=== PATIENT | male | born 1935 | race Caucasian/White ===

== ENCOUNTER 2017-01-23 20:09 | Inpatient (IN) | payer OTHER ==
[~2017-01-23] VITALS: Ht 182.9 cm; Wt 73.7 kg
--- NOTE | ~2017-01-23 | 2DMMODE ---
[facility] [address] [place] [address] 2 D/M-MODE ECHOCARDIOGRAM Name: JOVITAURBAN Room #: 309-P ADM IN M.R.#: [id number] Admission: 01/23/17 Attend Phys: Raul Blackman, Discharge: Date of : 37 Date of Service: 01/24/17 1510 Report #: [id number] THIS REPORT FOR: //name// APPROVED REPORT Study performed: 01/24/2017 14:27:19 EXAM: Comprehensive 2D, Doppler, and color-flow Echocardiogram Patient Location: Bedside Room #: 309 Blood Pressure: 185/119 mmHg HR: 78 bpm Other Information Study Quality: Fair Indications Hypertension/HDD Aortic Valve AoV Peak Collin.: 1.62 m/s AO Peak Gr.: 10.44 mmHg LV Max P.60 mmHg LV Max: 1.38 m/s Mitral Valve E/A Ratio: 0.5 MV Decel. Time: 293.48 ms MV E Max Collin.: 0.52 m/s MV A Collin.: 1.15 m/s MV PHT: 85.11 ms Pulmonary Vein P Vein S: 38.5 m/s P Vein D: 21.0 m/s P Vein A Dur.: 35.9 m/s PVa Duration: 101 Left Ventricle The left ventricle is normal size. Appears to have concentric left ventricular hypertrophy. Left ventricular systolic function is hyperdynamic. LVEF is >70%. Grade I - abnormal relaxation pattern. [facility] [address] [email or web address] [address] 2 D/M-MODE ECHOCARDIOGRAM Name: JOVITA,[facility] Room #: 309-P ADM IN M.R.#: [id number] Admission: 01/23/17 Attend Phys: Raul Blackman, Discharge: Date of : 37 Date of Service: 01/24/17 1510 Report #: [id number] Right Ventricle The right ventricle is normal size. The right ventricular systolic function is normal. Atria The left atrium size is normal. The right atrium size is normal. Aortic Valve The aortic valve is not well visualized. Aortic valve is calcified. No aortic regurgitation is present. There is no aortic valvular stenosis. Mitral Valve The mitral valve is normal in structure. There is no mitral valve regurgitation noted. No evidence of mitral valve stenosis. Tricuspid Valve The tricuspid valve is normal in structure. There is no tricuspid valve regurgitation noted. Pulmonic Valve Pulmonic valve is not well visualized. Great Vessels The aortic root is not well visualized but is probably normal size. IVC is not well visualized. Pericardium There is no pericardial effusion. <Conclusion> The left ventricle is normal size. LVEF is >70%. The aortic valve is not well visualized. Aortic valve is calcified. The mitral valve is normal in structure. The tricuspid valve is normal in structure. <ELECTRONICALLY SIGNED> By: Oumar Bagley MD 01/24/17 1510 09 09 Oumar Bagley MD /INF
--- NOTE | ~2017-01-23 | EEG ---
[facility] [place] [address] [facility]ENCEPHALOGRAM [facility] #: [facility]-P ADM IN M.R.#: [id number] Admission: 01/23/17 Attend Phys: Raul Blackman DO Discharge: Date of : 37 Report #: [id number] THIS REPORT FOR: //name// CC: Raul Mitchell DATE OF SERVICE: 01/24/2017 This patient is being evaluated for altered mental status. EEG was done to further evaluate that. This patient's EEG was done by placing the electrodes by standard 10-20 system of electrode placement. Both referential and sequential montages were used for recording. Background activity in this patient's EEG is about 9 Hz and 30-40 microvolt. It is somewhat suppressed on the left side. The patient went to sleep that is associated with bilateral slowing, vertex sharp waves and sleep spindle. Throughout the record, no active epileptiform activity was noticed. IMPRESSION: No active epileptiform activity was noticed during this EEG. There is slight asymmetry of amplitude, with amplitude being somewhat higher on the right side as compared to the left side. That can happen normally, but the possibility of any right-sided lesion should be excluded. No active epileptiform activity was noticed during this record. Thank you very much for this referral. <ELECTRONICALLY SIGNED> By: Juan Pablo Griffin MD 01/25/17 1942 1846 46 MD cris Edmond
--- NOTE | ~2017-01-23 | EKG ---
[address] [place] [place] [address] ELECTROCARDIOGRAM [facility] Room #: 309-P ADM IN M.R.#: [id number] Admission: 01/23/17 Attend Phys: Raul Blackman DO Discharge: Date of : 37 Report #: [id number] THIS REPORT FOR: //name// [facility] ED Test Date: 2017-01-23 Test Time: 20:26:50 Pat Name: EVELYN HUSSEIN Department: Room: [facility] Gender: M Supply Service Worker: JONATHAN : 1935 Requested By: Katy Aguilar Order Number: [id number] MD: Geoffrey Tavarez Measurements Intervals [place] Rate: 69 P: 58 VT: 200 QRS: 38 QRSD: 89 T: 87 QT: 396 QTc: 425 Interpretive Statements Sinus rhythm Baseline wander in lead(s) V1 No previous ECG available for comparison Electronically Signed On 01-24-2017 8:22:56 CDT by Geoffrey Tavarez [email or web address] <ELECTRONICALLY SIGNED> By: Geoffrey Tavarez MD, [facility] 01/24/17821 25 25 Geoffrey Tavarez MD, FACC /EPI
[2017-01-23 20:10] VITALS: BP 214/94
[2017-01-23 20:27] LABS: ABSOLUTE NEUTROPHILS 8.3 thou/uL (1.4-8.2); BASOPHILS 0.6 % (0.0-2.0); EOSINOPHILS 1.8 % (0.0-3.0); HEMOGLOBIN 15.9 gm/dL (14.0-18.0); LYMPHOCYTES 9.9 % (24.0-44.0); MCH 32.3 pg (26.0-34.0); MCHC 33.9 g/dL (28.0-37.0); MCV 95.3 fL (80.0-100.0); MONOCYTES 7.2 % (1.0-8.0); PLATELET COUNT 272 thou/uL (150-400); POLYS 80.5 % (36.0-66.0); RBC 4.93 mil/uL (4.50-6.00); RDW 13.5 % (10.5-14.5); WBC 10.3 thou/uL (4.0-11.0)
[2017-01-23 20:35] LABS: MANUAL DIFF NO
[2017-01-23 20:40] LABS: CALCIUM 8.9 mg/dL (8.5-10.1); CREATININE 0.9 mg/dL (0.7-1.3); POTASSIUM 3.5 mmol/L (3.5-5.1)
[2017-01-23] MEDS ORDERED: COREG CR10 MG (21:20)
[2017-01-23] MEDS ORDERED: METFORMIN HCL500 MG PO (21:21)
[2017-01-23] MEDS ORDERED: LISINOPRIL10 MG PO (21:21)
[2017-01-23] MEDS ORDERED: HYDRALAZINE 10M10 MG (21:21)
[2017-01-23] MEDS ORDERED: REQUIP 0.25 M0.25 M1 (21:21)
[2017-01-23 22:38] LABS: URINE BILIRUBIN NEGATIVE (Negative); URINE BLOOD NEGATIVE (Negative); URINE COLOR YELLOW; URINE GLUCOSE-RANDOM* NEGATIVE (Negative); URINE KETONES NEGATIVE (Negative); URINE NITRITE NEGATIVE (Negative); URINE PROTEIN (DIPSTICK) NEGATIVE (Negative); URINE SPECIFIC GRAVITY 1.015 (1.003-1.035)
[2017-01-23 23:02] VITALS: BP 187/93
[2017-01-24 04:22] VITALS: BP 159/84
[2017-01-24 06:38] LABS: FOLIC ACID 18.4 ng/mL (8.6-58.9); TSH 2.438 uIU/mL (0.358-3.740)
[2017-01-24 08:40] VITALS: BP 185/119
[2017-01-24 09:27] LABS: CHOLESTEROL 137 mg/dL (<200); HDL CHOLESTEROL 34 mg/dL (>40); LDL CHOLESTEROL 86 mg/dL (<100); TRIGLYCERIDE 85 mg/dL (<150); VLDL 17 mg/dL (<40)
[2017-01-24 14:00] VITALS: BP 148/74
[2017-01-24 17:00] VITALS: BP 144/76
[2017-01-24 20:15] VITALS: BP 144/63
[2017-01-25 03:14] LABS: HIV ANTIBODY Non Reactive (Non Reactive)
[2017-01-25 04:30] VITALS: BP 177/102
[2017-01-25 05:19] LABS: ABSOLUTE NEUTROPHILS 5.5 thou/uL (1.4-8.2); BASOPHILS 0.9 % (0.0-2.0); EOSINOPHILS 1.9 % (0.0-3.0); HEMATOCRIT 49.2 % (42.0-52.0); HEMOGLOBIN 16.8 gm/dL (14.0-18.0); LYMPHOCYTES 13.9 % (24.0-44.0); MCH 32.2 pg (26.0-34.0); MCV 94.7 fL (80.0-100.0); MONOCYTES 9.9 % (1.0-8.0); PLATELET COUNT 266 thou/uL (150-400); POLYS 73.4 % (36.0-66.0); RDW 13.5 % (10.5-14.5); WBC 7.5 thou/uL (4.0-11.0)
[2017-01-25 05:29] LABS: MANUAL DIFF NO
[2017-01-25 05:31] LABS: CALCIUM 8.4 mg/dL (8.5-10.1); CREATININE 0.8 mg/dL (0.7-1.3); POTASSIUM 3.8 mmol/L (3.5-5.1)
[2017-01-25 08:13] VITALS: BP 169/83
[2017-01-25 12:00] VITALS: BP 135/78
[2017-01-25 17:00] VITALS: BP 169/83
[2017-01-25 20:00] VITALS: BP 186/91
[2017-01-25 23:10] LABS: GLYCOHEMOGLOBIN (HGB A1C) 5.5 % (4.8-5.6)
[2017-01-26 04:00] VITALS: BP 157/73
[2017-01-26 04:28] LABS: CALCIUM 8.3 mg/dL (8.5-10.1); CREATININE 0.8 mg/dL (0.7-1.3); POTASSIUM 3.4 mmol/L (3.5-5.1)
[2017-01-26 08:00] VITALS: BP 180/92
[2017-01-26 12:00] VITALS: BP 134/80
[2017-01-26 16:00] VITALS: BP 182/88
[2017-01-26 19:26] VITALS: BP 187/74
[2017-01-27 04:25] VITALS: BP 171/93
[2017-01-27 06:13] LABS: CALCIUM 8.3 mg/dL (8.5-10.1); CREATININE 0.9 mg/dL (0.7-1.3); POTASSIUM 3.3 mmol/L (3.5-5.1)
[2017-01-27 11:54] VITALS: BP 151/77
[2017-01-27] MEDS ORDERED: LISINOPRIL10 MG PO (12:01)
[2017-01-27] MEDS ORDERED: B-121000 MC2 PO (12:01)
[2017-01-27] MEDS ORDERED: ADULT LOW DOSE81 MG PO (12:01)
[2017-01-27] MEDS ORDERED: NORVASC10 MG PO (12:01)
[2017-01-27 16:46] VITALS: BP 161/73
[2017-01-27 21:55] VITALS: BP 163/80
[2017-01-28 04:00] VITALS: BP 161/84
[2017-01-28 08:15] VITALS: BP 159/90
[2017-01-28 12:16] VITALS: BP 182/81
[2017-01-28 15:23] VITALS: BP 183/75
[2017-01-28 20:00] VITALS: BP 146/73
[2017-01-29 04:25] VITALS: BP 131/69
[2017-01-29 07:14] VITALS: BP 162/87
[2017-01-29 11:39] VITALS: BP 120/60
[2017-01-29 15:52] VITALS: BP 140/87
[2017-01-29 20:20] VITALS: BP 153/74
[2017-01-30 03:55] VITALS: BP 132/88
[2017-01-30 10:04] VITALS: BP 171/84
[2017-01-30] MEDS ORDERED: HYDROCHLOROTHIA25 M2 PO (11:43)
[2017-01-30] MEDS ORDERED: HYDRALAZINE 10M10 MG PO (11:43)
== END 2017-01-30 14:00 | DRG 304 ==
LOC: ER 20:09 → 3N 21:27 → EROBS 21:27 → 3N 22:42
PROVIDERS: Emergency Medicine; Family Medicine; Internal Medicine Endocrinology, Diabetes & Metabolism; Nurse Practitioner; Psychiatry & Neurology Neurology
DX: I16.1 Hypertensive emergency (principal); G93.41 Metabolic encephalopathy; I69.351 Hemiplegia and hemiparesis following cerebral infarction affecting right dominant side; I10 Essential (primary) hypertension; R41.0 Disorientation, unspecified; E78.5 Hyperlipidemia, unspecified; E87.6 Hypokalemia; R53.81 Other malaise; M17.12 Unilateral primary osteoarthritis, left knee; E11.65 Type 2 diabetes mellitus with hyperglycemia; Z82.3 Family history of stroke
CPT/HCPCS: 10096

== ENCOUNTER 2017-02-19 09:10 | Emergency (ER) | payer OTHER ==
[~2017-02-19] VITALS: Ht 182.9 cm; Wt 77.1 kg
[~2017-02-19 09:10] MED LIST: ADULT LOW DOSE81 MG PO; B-121000 MC2 PO; COREG CR10 MG; HYDRALAZINE 10M10 MG; HYDRALAZINE 10M10 MG PO; HYDROCHLOROTHIA25 M2 PO; LISINOPRIL10 MG PO; METFORMIN HCL500 MG PO; NORVASC10 MG PO; REQUIP 0.25 M0.25 M1
[2017-02-19 09:32] LABS: ABSOLUTE NEUTROPHILS 6.3 thou/uL (1.4-8.2); BASOPHILS 0.9 % (0.0-2.0); EOSINOPHILS 6.1 % (0.0-3.0); HEMATOCRIT 42.5 % (42.0-52.0); HEMOGLOBIN 14.8 gm/dL (14.0-18.0); LYMPHOCYTES 11.6 % (24.0-44.0); MANUAL DIFF NO; MCH 33.3 pg (26.0-34.0); MCHC 34.8 g/dL (28.0-37.0); MCV 95.5 fL (80.0-100.0); MONOCYTES 8.9 % (1.0-8.0); PLATELET COUNT 356 thou/uL (150-400); POLYS 72.5 % (36.0-66.0); RBC 4.45 mil/uL (4.50-6.00); WBC 8.6 thou/uL (4.0-11.0)
[2017-02-19 09:39] LABS: URINE BILIRUBIN NEGATIVE (Negative); URINE BLOOD 1+ (Negative); URINE COLOR YELLOW; URINE GLUCOSE-RANDOM* NEGATIVE (Negative); URINE KETONES NEGATIVE (Negative); URINE NITRITE NEGATIVE (Negative); URINE PROTEIN (DIPSTICK) 1+ (Negative)
[2017-02-19 09:39] LABS: CALCIUM 8.7 mg/dL (8.5-10.1); CREATININE 0.9 mg/dL (0.7-1.3); POTASSIUM 3.9 mmol/L (3.5-5.1)
[2017-02-19 09:49] LABS: SQUAMOUS None Seen /LPF (0-3)
[2017-02-19 09:50] LABS: CASTS None Seen /LPF (None Seen); CRYSTALS None Seen /LPF (None Seen); URINE RBC 0-2 Rare /HPF (0-2)
[2017-02-19 09:51] LABS: BACTERIA >30 Many /HPF (None Seen)
[2017-02-19] MEDS ORDERED: KEFLEX500 MG PO (10:03)
== END 2017-02-19 11:57 | disposition home or self-care (01) ==
LOC: ER 09:10
PROVIDERS: Emergency Medicine
DX: R33.9 Retention of urine, unspecified (principal); Z86.73 Personal history of transient ischemic attack (TIA), and cerebral infarction without residual deficits; I10 Essential (primary) hypertension; E11.9 Type 2 diabetes mellitus without complications

== ENCOUNTER 2017-03-03 09:19 | Emergency (ER) | payer OTHER ==
[~2017-03-03] VITALS: Ht 185.4 cm; Wt 88.5 kg
[~2017-03-03 09:19] MED LIST changes: +KEFLEX500 MG PO
[2017-03-03 10:41] LABS: URINE BLOOD 3+ (Negative); URINE GLUCOSE-RANDOM* NEGATIVE (Negative); URINE KETONES 1+ (Negative); URINE NITRITE NEGATIVE (Negative); URINE PROTEIN (DIPSTICK) 1+ (Negative); URINE SPECIFIC GRAVITY 1.025 (1.003-1.035)
[2017-03-03 10:44] LABS: ICTOTEST (BILI CONFIRMATORY) Negative (Negative); URINE BILIRUBIN NEGATIVE (Negative); URINE COLOR DK YELLOW
[2017-03-03 11:00] LABS: CASTS None Seen /LPF (None Seen); CRYSTALS None Seen /LPF (None Seen); SQUAMOUS None Seen /LPF (0-3); URINE RBC >20 Many /HPF (0-2); URINE WBC 6-15 Few /HPF (0-5)
== END 2017-03-03 11:13 | disposition home or self-care (01) ==
LOC: ER 09:19
PROVIDERS: Physician Assistant
DX: T83.84XA Pain due to genitourinary prosthetic devices, implants and grafts, initial encounter (principal); I10 Essential (primary) hypertension; E11.9 Type 2 diabetes mellitus without complications; Z86.73 Personal history of transient ischemic attack (TIA), and cerebral infarction without residual deficits

== ENCOUNTER 2017-03-10 03:16 | Emergency (ER) | payer OTHER ==
[~2017-03-10] VITALS: Ht 185.4 cm; Wt 88.5 kg
[2017-03-10 07:32] LABS: URINE BILIRUBIN NEGATIVE (Negative); URINE BLOOD 3+ (Negative); URINE GLUCOSE-RANDOM* NEGATIVE (Negative); URINE KETONES NEGATIVE (Negative); URINE NITRITE NEGATIVE (Negative); URINE PROTEIN (DIPSTICK) 1+ (Negative); URINE UROBILINOGEN 0.2 E.U./dl (0.2-1.0)
[2017-03-10 07:34] LABS: URINE COLOR PINK
[2017-03-10 08:10] LABS: CASTS None Seen /LPF (None Seen); CRYSTALS None Seen /LPF (None Seen); SQUAMOUS 0-3 Few /LPF (0-3); URINE RBC >20 Many /HPF (0-2); URINE WBC 6-15 Few /HPF (0-5)
[2017-03-10] MEDS ORDERED: KEFLEX500 MG PO (08:18)
== END 2017-03-10 09:46 | disposition home or self-care (01) ==
LOC: ER 03:16
PROVIDERS: Emergency Medicine
DX: N39.0 Urinary tract infection, site not specified (principal); I10 Essential (primary) hypertension; E11.9 Type 2 diabetes mellitus without complications; Z86.73 Personal history of transient ischemic attack (TIA), and cerebral infarction without residual deficits

== ENCOUNTER 2017-03-15 01:59 | Emergency (ER) | payer OTHER ==
[~2017-03-15] VITALS: Ht 180.3 cm; Wt 74.8 kg
[2017-03-15] MEDS ORDERED: LEVAQUIN 250 M250 MG PO (03:24)
[2017-03-15] MEDS ORDERED: PYRIDIUM200 MG PO (03:24)
== END 2017-03-15 04:28 | disposition home or self-care (01) ==
LOC: ER 01:59
DX: N39.0 Urinary tract infection, site not specified (principal); I10 Essential (primary) hypertension; E11.9 Type 2 diabetes mellitus without complications; Z86.73 Personal history of transient ischemic attack (TIA), and cerebral infarction without residual deficits

== ENCOUNTER 2017-03-24 21:56 | Inpatient (IN) | payer OTHER ==
[~2017-03-24] VITALS: Ht 182.9 cm; Wt 71.2 kg
--- NOTE | ~2017-03-24 | HC ---
[facility] [place] [address] [facility] Room #: 458- ADM IN M.R.#: [id number] Admission: 03/25/17 Attend Phys: Yung Macdonald MD Discharge: Date of : 37 Report #: [id number] THIS REPORT FOR: //name// CC: Lizet Macdonald HISTORY OF PRESENT ILLNESS: The patient is an 81-year-old, who has a prior CVA with premorbid significant right hemiparesis, who was admitted with penile pain. The patient was diagnosed with right-sided orchitis as well as bilateral epididymitis with recommendations for nonsteroidals and doxycycline. He has also had a history of frequent falls, has left chronic knee pain complicating his right-sided weakness and transfers. While he was hospitalized, he had the new onset of inability to speak on 03/25, with aphasia. CT of the head was negative, but MRI showed an acute subinsular infarct on 03/26. He was allowed permissive hypertension. Speech therapy is involved, and a swallow evaluation is to be undertaken. He currently is noted to have moderate to severe dysphagia with recommendations for him to be n.p.o. We are seeing him in rehabilitation medicine consultation. PAST MEDICAL HISTORY: Includes the prior CVA with dense right-sided weakness 2-1/2 years ago. He has had several TIAs. His past history includes hypertension, diabetes mellitus, left knee degenerative arthritis, and frequent falls. MEDICATIONS: Please see the full medication listing. FAMILY HISTORY: Noncontributory. ALLERGIES: No known drug allergies. SOCIAL HISTORY: He has been living in an apartment alone. No steps, was able to transfer back and forth to his power wheelchair independently. He had a caregiver/aide 14 hours per week. He was mostly nonambulatory, getting around in his power wheelchair. REVIEW OF SYSTEMS: He would nod for me and did not note any chest pain, shortness of breath, or abdominal discomfort. He indicated no swallowing problems, however, so I could not fully trust his yes and no nodding. He does have the left knee pain. This is an old chronic issue. PHYSICAL EXAMINATION: GENERAL: He is an 81-year-old white male, in no obvious distress. VITAL SIGNS: Temperature is 98, pulse ____, respirations 18, and blood pressure 184/94. NEUROLOGIC: Facies are symmetric. He tends to hold his mouth open in an O shape. He could try to make a smile for me, but appears to have significant oral motor facial weakness. He did not attempt to form any words for me. He [address] [address] [facility]: [facility] #: [facility] IN M.R.#: [id number] Admission: 03/25/17 Attend Phys: Yung Macdonald MD Discharge: Date of : 37 Report #: [id number] has functional range of motion of the left upper extremity. Right upper extremity reveals a right wrist flexion contracture with fisting of the right hand, which could be gently loosened. He is able to raise the right arm grade 3 to 3-. There is no edema. He has painted finger nails. Lower extremities, no focal calf swelling. He does have some right-sided weakness. I would grade him more of a grade 3+ proximally and 3- distally with some apparent right foot drop and weakness in dorsiflexion and eversion. Left lower extremity is more of a grade 4. He appears to have some chronic degenerative changes of both knees. He has been contact guard with bed to chair transfers, had mild posterior loss of balance. Toilet transfers are min assist. He did attempt 2-4 steps with a gait belt stimulating toilet transfer, needing min assist. Speech therapy has noted moderate cognitive deficits. ASSESSMENT: An 81-year-old white male with the following problem list: 1. Acute subinsular infarct, 03/26. 2. Acute severe aphasia and dysphagia. To undergo swallowing study. Currently n.p.o. 3. Moderate cognitive deficits noted per speech therapy. 4. Premorbid cerebrovascular accident with residual right-sided significant hemiparesis from an old stroke 2-1/2 years ago. 5. Right-sided orchitis with bilateral epididymitis. 6. Knee degenerative arthritis. 7. Premorbidly power wheelchair bound, but was able to transfer. PLAN: We will need to see how he does with the swallowing evaluation, whether he warrants PEG tube placement or not. He was living very marginally before. His tolerance for therapies is limited because of the knee degenerative arthritis and working on transfers. I would anticipate that a skilled facility stay would appear to be the most reasonable plan for this patient as I do not think he would tolerate a full acute inpatient rehab stay very well and I questioned whether eventually returning back to his home setting is a realistic plan. Thank you for asking us to assist in this patient's care. <ELECTRONICALLY SIGNED> By: Vinicius Huynh MD 04/01/17 1825 1114 1344 Vinicius Huynh MD /nt
--- NOTE | ~2017-03-24 | HC ---
[facility] [place] [address] [facility]: [facility] ADM IN M.R.#: [id number] Admission: 03/25/17 Attend Phys: Yung Macdonald MD Discharge: Date of : 37 Report #: [id number] THIS REPORT FOR: //name// CC: Lizet Macdonald DATE OF SERVICE: 03/29/2017 GASTROENTEROLOGY CONSULTATION REASON FOR CONSULTATION: Possible PEG tube placement. BACKGROUND: The patient is an 81-year-old white male, admitted on 03/25/2017 with primary complaints of penile pain and epididymitis. Issues of this nature have been addressed per hospitalist and urologist. He had reported falling frequently due to left chronic knee pain and right-sided weakness from prior CVA. He is not well ambulatory. History cannot be well obtained from the patient at this time with aphasia and difficulty in response. He did undergo further evaluation during his hospitalization and CT of the head revealed no definite acute stroke; however, the CT was noncontrast. Atrophic changes were present. MRI of the head on 03/26/2017 did reveal a focal 23 x 6-mm right cerebral hemispheric area of patchy increased diffusion consistent with an acute infarct, but no other diffusion abnormality. No obvious hemorrhage or shift was present. The patient was felt to be at high risk for aspiration and a Dobhoff tube has been placed. PAST MEDICAL HISTORY: He does have a history of hypertension, diabetes, and previous right CVA. Further history cannot be well obtained from the patient. CURRENT MEDICATIONS: Insulin per sliding scale, aspirin 300 mg per day, labetalol p.r.n., hydralazine p.r.n., Requip 0.25 mg at bedtime, metformin 500 mg p.o. b.i.d., lisinopril 40 mg per day, vitamin B12 500 mcg per day, amlodipine 10 mg per day, Levaquin 750 mg q.24 hours, ibuprofen p.r.n., acetaminophen p.r.n., and hydralazine 10 mg t.i.d. ALLERGIES: No known drug allergies. SOCIAL HISTORY: Unable to be obtained from the patient at this time. FAMILY HISTORY: Unable to be obtained from the patient at this time. REVIEW OF SYSTEMS: Unable to be obtained from the patient at this time. PHYSICAL EXAMINATION: GENERAL: The patient appears arousable, but is unable to communicate vocally, [facility] [address] [facility] [place] [address] CON[facility]ATION [facility]: [facility] Room #: 458-P [facility].#: [id number] Admission: 03/25/17 Attend Phys: Yung Macdonald MD Discharge: Date of : 37 Report #: [id number] although he does raise his left hand in response to questions. VITAL SIGNS: Afebrile, blood pressure 176/102, and pulse 79. NEUROLOGIC: He does have right-sided weakness with inability to move his right arm. NECK: Supple without lymphadenopathy. HEART: Heart rate and rhythm regular. LUNGS: Clear to auscultation. ABDOMEN: Soft, nondistended with no obvious hepatosplenomegaly or palpable mass. He exhibits no focal tenderness to palpation. No scars are present in the upper abdomen. EXTREMITIES: He has no significant peripheral edema. LABORATORY STUDIES: On admission, white blood cell count 14.6, hemoglobin 12.7, and platelet count 346,000. More recent CBC on 03/28/2017 reveals decrease in white blood cell count to 9100, hemoglobin stable at 13.4. On 03/28/2017, potassium 3.3, BUN 8, and creatinine 0.6. IMPRESSION: 1. Acute cerebrovascular accident with increased problems with swallowing and high risk of aspiration. 2. Hypertension. 3. Diabetes mellitus. 4. Right-sided epididymitis, followed by urology. RECOMMENDATIONS: 1. Continue tube feedings per Dobhoff. 2. EGD with PEG tube placement may be considered early next week. <ELECTRONICALLY SIGNED> By: Wilver Whaley MD 03/30/17 0745 1259 [id number] Wilver Whaley MD /nt
--- NOTE | ~2017-03-24 | EKG ---
[address] [address] ELECTROCARDIOGRAM [facility] Room #: 458-P ADM IN M.R.#: [id number] Admission: 03/25/17 Attend Phys: Yung Macdonald MD Discharge: Date of : 37 Report #: [id number] THIS REPORT FOR: //name// [facility] Test Date: 2017-03-25 Test Time: 19:26:39 Pat Name: EVELYN HUSSEIN Department: Room: [facility] Gender: M Configuration Consultant: Sarah FRANCIS : 1935 Requested By: Shauna Macario Order Number: [id number] MD: Geoffrey Tavarez Measurements Intervals [place] Rate: 58 P: 82 GA: 185 QRS: 42 QRSD: 86 T: 67 QT: 413 QTc: 406 Interpretive Statements Sinus bradycardia No significant abnormality Compared to ECG 01/23/2017 20:26:50 No significant changes Electronically Signed On 03-26-2017 7:48:47 CDT by Geoffrey Tavarez [email or web address] <ELECTRONICALLY SIGNED> By: Geoffrey Tavarez MD, [facility] 03/26/17 0748 D: 06/1924 25 Geoffrey Tavarez MD, FACC /EPI
[~2017-03-24 21:56] MED LIST changes: +LEVAQUIN 250 M250 MG PO; +PYRIDIUM200 MG PO
[2017-03-24 22:51] LABS: ABSOLUTE NEUTROPHILS 11.8 thou/uL (1.4-8.2); BASOPHILS 0.8 % (0.0-2.0); EOSINOPHILS 1.6 % (0.0-3.0); HEMATOCRIT 37.4 % (42.0-52.0); HEMOGLOBIN 12.7 gm/dL (14.0-18.0); LYMPHOCYTES 10.1 % (24.0-44.0); MCH 32.6 pg (26.0-34.0); MCHC 33.8 g/dL (28.0-37.0); MCV 96.3 fL (80.0-100.0); MONOCYTES 6.6 % (1.0-8.0); PLATELET COUNT 346 thou/uL (150-400); POLYS 80.9 % (36.0-66.0); RBC 3.89 mil/uL (4.50-6.00); RDW 13.8 % (10.5-14.5); WBC 14.6 thou/uL (4.0-11.0)
[2017-03-24 22:52] LABS: MANUAL DIFF NO
[2017-03-24 22:58] LABS: CALCIUM 8.5 mg/dL (8.5-10.1); CREATININE 0.8 mg/dL (0.7-1.3); POTASSIUM 3.4 mmol/L (3.5-5.1)
[2017-03-25] VITALS (8 sets, daily range): BP systolic 145–182; BP diastolic 58–82
[2017-03-25 00:07] LABS: URINE BILIRUBIN NEGATIVE (Negative); URINE COLOR ORANGE
[2017-03-25 00:08] LABS: ICTOTEST (BILI CONFIRMATORY) Negative (Negative)
[2017-03-25 00:19] LABS: URINE GLUCOSE-RANDOM* NEGATIVE (Negative)
[2017-03-25 00:28] LABS: CASTS None Seen /LPF (None Seen); SQUAMOUS 0-3 Few /LPF (0-3); URINE RBC 0-2 Rare /HPF (0-2); URINE WBC-REFLEX 0-5 Rare /HPF (0-5)
[2017-03-25 00:29] LABS: CRYSTALS None Seen /LPF (None Seen); TRANSITIONAL EPITHEL CELL 0-3 Few /LPF (None Seen); URINE PROTEIN (DIPSTICK) NEGATIVE (Negative)
[2017-03-25 00:30] LABS: SSA (PROTEIN CONFIRMATORY) NEGATIVE (Negative)
[2017-03-26 03:27] VITALS: BP 185/72
[2017-03-26 06:17] LABS: CHOLESTEROL 126 mg/dL (<200); HDL CHOLESTEROL 44 mg/dL (>40); LDL CHOLESTEROL 68 mg/dL (<100); TC:HDL 2.9 Ratio (Not establshd); TRIGLYCERIDE 72 mg/dL (<150); VLDL 14 mg/dL (<40)
[2017-03-26 06:18] LABS: SERUM ASSESSMENT Clear
[2017-03-26 06:54] LABS: VALPROIC ACID (DEPAKENE)* < 3 ug/mL (50-100)
[2017-03-26 07:38] VITALS: BP 200/98
[2017-03-26 10:11] LABS: FREE T4 1.11 ng/dL (0.82-1.77)
[2017-03-26 11:35] VITALS: BP 125/90
[2017-03-26 15:41] VITALS: BP 148/74
[2017-03-26 19:44] VITALS: BP 166/89
[2017-03-27 00:09] VITALS: BP 186/89
[2017-03-27 03:10] VITALS: BP 160/86
[2017-03-27 04:08] LABS: GLYCOHEMOGLOBIN (HGB A1C) 5.5 % (4.8-5.6)
[2017-03-27 08:26] VITALS: BP 184/94
[2017-03-27 11:32] VITALS: BP 180/92
[2017-03-27 16:07] VITALS: BP 200/98
[2017-03-27 19:45] VITALS: BP 167/64
[2017-03-28 04:15] VITALS: BP 173/75
[2017-03-28 08:18] VITALS: BP 175/92
[2017-03-28 09:41] LABS: ABSOLUTE NEUTROPHILS 7.1 thou/uL (1.4-8.2); BASOPHILS 0.6 % (0.0-2.0); EOSINOPHILS 2.6 % (0.0-3.0); HEMATOCRIT 38.5 % (42.0-52.0); HEMOGLOBIN 13.4 gm/dL (14.0-18.0); LYMPHOCYTES 11.4 % (24.0-44.0); MANUAL DIFF NO; MCHC 34.9 g/dL (28.0-37.0); MCV 94.6 fL (80.0-100.0); MONOCYTES 7.4 % (1.0-8.0); PLATELET COUNT 410 thou/uL (150-400); RBC 4.07 mil/uL (4.50-6.00); RDW 13.3 % (10.5-14.5); WBC 9.1 thou/uL (4.0-11.0)
[2017-03-28 09:50] LABS: CREATININE 0.6 mg/dL (0.7-1.3); POTASSIUM 3.3 mmol/L (3.5-5.1)
[2017-03-28 11:55] VITALS: BP 183/91
[2017-03-28 14:09] LABS: ALPHA TOCOPHEROL 10.3 mg/L (5.3-17.5)
[2017-03-28 16:40] VITALS: BP 186/96
[2017-03-28 20:01] VITALS: BP 183/87
[2017-03-29 04:12] VITALS: BP 184/93
[2017-03-29 07:36] VITALS: BP 180/81
[2017-03-29 11:00] VITALS: BP 176/102
[2017-03-29 15:12] VITALS: BP 172/85
[2017-03-29 20:20] VITALS: BP 195/99
[2017-03-29] MEDS ORDERED: PLAVIX 75 MG TA75 MG PO (21:55)
[2017-03-29] MEDS ORDERED: COREG25 MG PO (22:01)
[2017-03-29] MEDS ORDERED: VITAMIN B-12500 MCG PO (22:02)
[2017-03-29] MEDS ORDERED: ZOLOFT25 MG PO (22:05)
[2017-03-29 23:50] VITALS: BP 216/106
[2017-03-30 00:15] VITALS: BP 181/79
[2017-03-30 04:03] VITALS: BP 174/83
[2017-03-30 08:00] VITALS: BP 241/118
[2017-03-30 16:10] VITALS: BP 189/107
[2017-03-30 16:19] VITALS: BP 180/101
[2017-03-30 19:20] VITALS: BP 208/97
[2017-03-31 04:07] VITALS: BP 161/83
[2017-03-31 05:16] LABS: HEMOGLOBIN 14.5 gm/dL (14.0-18.0); MCHC 35.5 g/dL (28.0-37.0); MCV 93.1 fL (80.0-100.0); RBC 4.4 mil/uL (4.50-6.00); RDW 13.4 % (10.5-14.5); WBC 10.5 thou/uL (4.0-11.0)
[2017-03-31 05:35] LABS: CALCIUM 8.3 mg/dL (8.5-10.1); CREATININE 0.7 mg/dL (0.7-1.3); POTASSIUM 3.1 mmol/L (3.5-5.1)
[2017-03-31 08:05] VITALS: BP 156/96
[2017-03-31 11:30] VITALS: BP 177/96
[2017-03-31 15:05] VITALS: BP 252/118
[2017-03-31 17:00] VITALS: BP 168/75
[2017-03-31 19:31] VITALS: BP 152/89
[2017-04-01] VITALS (8 sets, daily range): BP systolic 148–174; BP diastolic 60–81
[2017-04-01 06:04] LABS: HEMATOCRIT 41.7 % (42.0-52.0); HEMOGLOBIN 14.4 gm/dL (14.0-18.0); MCH 32.7 pg (26.0-34.0); MCHC 34.5 g/dL (28.0-37.0); MCV 94.7 fL (80.0-100.0); RBC 4.41 mil/uL (4.50-6.00); RDW 13.7 % (10.5-14.5); WBC 10.5 thou/uL (4.0-11.0)
[2017-04-01 06:21] LABS: CALCIUM 8.2 mg/dL (8.5-10.1); CREATININE 0.6 mg/dL (0.7-1.3); POTASSIUM 3.6 mmol/L (3.5-5.1)
[2017-04-01] MEDS ORDERED: A AND D OINTM42.5 GM TP (08:37)
[2017-04-01] MEDS ORDERED: LIORESAL 10 MG10 MG PO (08:39)
[2017-04-01] MEDS ORDERED: ATORVASTATIN CA40 MG PO (08:39)
[2017-04-01] MEDS ORDERED: CETIRIZINE HCL5 MG PO (08:41)
[2017-04-01 08:44] LABS: APTT 29.2 Seconds (24.5-32.8); INR 1.1; PROTIME 11.7 Seconds (9.3-11.4)
[2017-04-01] MEDS ORDERED: MUCINEX TA600 MG/TA2 PO (08:49)
[2017-04-02 00:38] VITALS: BP 158/64
[2017-04-02 04:15] VITALS: BP 174/87
[2017-04-02 07:25] VITALS: BP 161/63
[2017-04-02] MEDS ORDERED: LEVAQUIN 750 M750 MG PO (08:51)
[2017-04-02 16:00] VITALS: BP 161/83
[2017-04-02 20:11] VITALS: BP 171/68
[2017-04-03 03:59] VITALS: BP 168/70
[2017-04-03 07:05] VITALS: BP 203/76
[2017-04-03 11:25] VITALS: BP 154/62
[2017-04-03 15:38] VITALS: BP 156/74
[2017-04-03 20:00] VITALS: BP 162/61
[2017-04-04 04:24] VITALS: BP 161/85
[2017-04-04 10:02] VITALS: BP 189/72
[2017-04-04 11:21] VITALS: BP 181/92
[2017-04-04 19:51] VITALS: BP 183/84
[2017-04-04 23:30] VITALS: BP 157/79
[2017-04-05 07:12] VITALS: BP 163/91
[2017-04-05 11:26] VITALS: BP 151/62
[2017-04-05 15:35] VITALS: BP 199/81
[2017-04-06 03:00] VITALS: BP 209/151
[2017-04-06 04:57] LABS: HEMATOCRIT 44.5 % (42.0-52.0); HEMOGLOBIN 15.1 gm/dL (14.0-18.0); MCH 32.7 pg (26.0-34.0); RBC 4.64 mil/uL (4.50-6.00); WBC 12.5 thou/uL (4.0-11.0)
[2017-04-06 05:13] LABS: ALBUMIN 2.9 g/dL (3.4-5.0); CALCIUM 9.3 mg/dL (8.5-10.1); CREATININE 0.8 mg/dL (0.7-1.3); PHOSPHORUS 3.2 mg/dL (2.5-4.9); POTASSIUM 3.8 mmol/L (3.5-5.1)
[2017-04-06 07:47] VITALS: BP 173/93
[2017-04-06 13:20] VITALS: BP 157/82
[2017-04-06 16:00] VITALS: BP 201/100
[2017-04-06 19:42] VITALS: BP 168/101
[2017-04-07 04:37] VITALS: BP 147/88
[2017-04-07 05:38] LABS: HEMATOCRIT 44.4 % (42.0-52.0); HEMOGLOBIN 15.2 gm/dL (14.0-18.0); MCH 32.8 pg (26.0-34.0); MCHC 34.3 g/dL (28.0-37.0); MCV 95.7 fL (80.0-100.0); RBC 4.64 mil/uL (4.50-6.00); WBC 11.9 thou/uL (4.0-11.0)
[2017-04-07 05:50] LABS: ALBUMIN 2.9 g/dL (3.4-5.0); CREATININE 0.7 mg/dL (0.7-1.3); PHOSPHORUS 2.9 mg/dL (2.5-4.9); POTASSIUM 3.7 mmol/L (3.5-5.1)
[2017-04-07 07:28] VITALS: BP 179/65
[2017-04-07 11:33] LABS: HEMOGLOBIN 15.4 gm/dL (14.0-18.0); MANUAL DIFF YES; MCH 33.4 pg (26.0-34.0); MCV 95.4 fL (80.0-100.0); PLATELET COUNT 340 thou/uL (150-400); RBC 4.62 mil/uL (4.50-6.00); RDW 14.3 % (10.5-14.5); WBC 10.2 thou/uL (4.0-11.0)
[2017-04-07 11:34] VITALS: BP 153/72
[2017-04-07 11:44] LABS: CREATININE 0.8 mg/dL (0.7-1.3); POTASSIUM 3.7 mmol/L (3.5-5.1)
[2017-04-07 11:56] LABS: ABSOLUTE NEUTROPHILS 8.3 thou/uL (1.4-8.2); TOTAL CELL COUNT 100
[2017-04-07 11:57] LABS: ANISOCYTOSIS 1+
[2017-04-07 19:36] VITALS: BP 220/113
[2017-04-07 23:54] VITALS: BP 146/77
[2017-04-08 04:51] VITALS: BP 132/66
[2017-04-08 06:26] LABS: HEMATOCRIT 45.9 % (42.0-52.0); HEMOGLOBIN 15.5 gm/dL (14.0-18.0); MCHC 33.9 g/dL (28.0-37.0); MCV 97.4 fL (80.0-100.0); RBC 4.71 mil/uL (4.50-6.00); RDW 13.9 % (10.5-14.5); WBC 9.7 thou/uL (4.0-11.0)
[2017-04-08 06:34] LABS: CALCIUM 9.2 mg/dL (8.5-10.1); CREATININE 0.9 mg/dL (0.7-1.3); POTASSIUM 4.1 mmol/L (3.5-5.1)
[2017-04-08 07:50] VITALS: BP 171/89
[2017-04-08 11:20] VITALS: BP 126/61
[2017-04-08 15:25] VITALS: BP 191/98
[2017-04-08 20:00] VITALS: BP 172/78; BP 177/78
[2017-04-09 04:00] VITALS: BP 166/88
[2017-04-09 08:17] VITALS: BP 161/82
[2017-04-09 11:17] VITALS: BP 175/76
[2017-04-09 16:20] VITALS: BP 205/92
[2017-04-09 20:00] VITALS: BP 144/66
[2017-04-10 04:00] VITALS: BP 169/76
[2017-04-10 07:47] VITALS: BP 165/70
[2017-04-10 11:28] VITALS: BP 239/97
[2017-04-10] MEDS ORDERED: TRANSDERM-SCO1 PATC1 TRANSDERM (12:50)
[2017-04-10] MEDS ORDERED: LORAZEPAM 22 MG/1 ML IV PUSH (12:59)
== END 2017-04-10 14:36 | disposition hospice, home (50) | DRG 871 ==
LOC: ER 21:56 → EROBS 03-25 01:05 → 3N 03-25 01:05 → 4W 03-25 01:05 → 3N 03-25 01:35 → 4W 03-25 21:21
PROVIDERS: Emergency Medicine; Family Medicine; Hospitalist; Internal Medicine Gastroenterology; Psychiatry & Neurology Neurology
PROC: 0DH63UZ Insertion of Feeding Device into Stomach, Percutaneous Approach (ICD-10-PCS; principal; 2017-04-01)
DX: A41.9 Sepsis, unspecified organism (principal); I63.9 Cerebral infarction, unspecified; J69.0 Pneumonitis due to inhalation of food and vomit; E44.0 Moderate protein-calorie malnutrition; N39.0 Urinary tract infection, site not specified; R47.01 Aphasia; N45.1 Epididymitis; Z66 Do not resuscitate; I10 Essential (primary) hypertension; N45.2 Orchitis; E11.9 Type 2 diabetes mellitus without complications; E87.6 Hypokalemia; M62.81 Muscle weakness (generalized); R33.9 Retention of urine, unspecified; K59.00 Constipation, unspecified; R13.10 Dysphagia, unspecified; M17.12 Unilateral primary osteoarthritis, left knee; R29.6 Repeated falls; Z68.21 Body mass index [BMI] 21.0-21.9, adult; Z99.3 Dependence on wheelchair; Z79.84 Long term (current) use of oral hypoglycemic drugs; Z79.899 Other long term (current) drug therapy
CPT/HCPCS: 10045; 10047; 62110; 62900; 70005